=== PATIENT | female | born 1945 ===

== ENCOUNTER 2025-08-01 08:20 | Day surgery (SDC) | payer OTHER ==
[2025-07-26 15:25] VITALS: BP 144/80
[~2025-08-01] VITALS: Ht 152.4 cm; Wt 63.5 kg
[2025-08-01] MEDS ORDERED: CEFAZOLIN SODIUM 1,000 MG VIAL ONE (08:56)
[2025-08-01] MEDS ORDERED: POVIDONE-IODINE 118 ML BOTT TOP ONE (09:53)
[2025-08-01] MEDS ORDERED: CHLORHEXIDINE GLUCONATE 120 ML BOTTLE TOP ONE (09:53)
[2025-08-01] MEDS ORDERED: EPINEPHRINE HCL/PF 1 MG/ML AMPUL ONE (10:37)
[2025-08-01] MEDS ORDERED: TRAM1TAB98 PO (11:53)
== END 2025-08-01 16:15 | disposition home or self-care (01) ==
LOC: SURH 08:20 → O/R 08:20 → CIR.AMB 08:20 → SURH 08:45 → EDSTATUS 10:30 → SURH 10:30 → O/R 12:33 → OB/GYN 12:33 → O/R 14:49 → CIR.AMB 16:15 → O/R 16:15
PROVIDERS: ATTEND Obstetrics & Gynecology Gynecology
DX: N81.11 Cystocele, midline (principal); N81.5 Vaginal enterocele; N81.6 Rectocele; Z88.6 Allergy status to analgesic agent